=== PATIENT | female | born 1945 | race Caucasian/White ===

== ENCOUNTER → 2017-02-23 | Outpatient (CLI) | payer MEDICARE, OTHER ==
[2017-02-23 12:19] LABS: ALANINE AMINOTRANSFERASE 31 U/L (9-52); ALBUMIN 3.9 g/dL (3.5-5.0); ALKALINE PHOSPHATASE 60 U/L (38-126); ANION GAP 9 (5-19); ASPARTATE AMINO TRANSFERASE 28 U/L (14-36); BILIRUBIN,DIRECT 0.3 mg/dL (0.0-0.4); BILIRUBIN,TOTAL 0.5 mg/dL (0.2-1.3); BLOOD UREA NITROGEN 24 mg/dL (7-20); CALCIUM 9.6 mg/dL (8.4-10.2); CARBON DIOXIDE 27 mmol/L (22-30); CHLORIDE 102 mmol/L (98-107); CHOLESTEROL 149.73 mg/dL (0-200); CREATININE RESULT 1.04 mg/dL (0.52-1.25); Direct HDL 37 mg/dL (>40); GLUCOSE 214 mg/dL (75-110); SODIUM 137.8 mmol/L (137-145); TOTAL PROTEIN 7.3 g/dL (6.3-8.2); TRIGLYCERIDES 208 mg/dL (<150)
[2017-02-23 12:30] LABS: DIRECT LDL 79 mg/dL (<100)
[2017-02-23 12:33] LABS: VLDL CHOLESTEROL 41.6 mg/dL (10-31)
== END ==
LOC: OD 10:41
PROVIDERS: ATTEND Internal Medicine
DX: I25.10 Atherosclerotic heart disease of native coronary artery without angina pectoris (principal); I10 Essential (primary) hypertension; E78.4 Other hyperlipidemia; I34.0 Nonrheumatic mitral (valve) insufficiency; E11.9 Type 2 diabetes mellitus without complications; I65.22 Occlusion and stenosis of left carotid artery; J44.9 Chronic obstructive pulmonary disease, unspecified; J45.998 Other asthma; K23 Disorders of esophagus in diseases classified elsewhere; R01.0 Benign and innocent cardiac murmurs; R09.89 Other specified symptoms and signs involving the circulatory and respiratory systems; Z79.899 Other long term (current) drug therapy
CPT/HCPCS: 36415; 80053; 80061

== ENCOUNTER → 2017-03-02 | Outpatient (CLI) | payer MEDICARE, OTHER ==
--- NOTE | 2017-03-07 13:14 | WOMENS IMAGING REPORT ---
EXAM DESCRIPTION: 3D SCREENING MAMMO BILAT COMPLETED DATE/TIME: 03/02/2017 11:11 am REASON FOR STUDY: ROUTINE SCREENING; 3D Z12.31 COMPARISON: None. TECHNIQUE: Standard craniocaudal and mediolateral oblique views of each breast recorded using digita l acquisition and breast tomosynthesis. LIMITATIONS: None. FINDINGS: RIGHT BREAST MASSES: There are numerous circumscribed masses throughout the breast. Smooth borders on tomosynthes is imaging. CALCIFICATIONS: Multiple calcifications scattered throughout the breast. ARCHITECTURAL DISTORTION: None. DEVELOPING DENSITY: None. ASYMMETRY: None noted. OTHER: No other significant findings. LEFT BREAST MASSES: There are numerous circumscribed masses throughout the breast. Smooth borders on tomosynthes is imaging. CALCIFICATIONS: Multiple calcifications scattered throughout the breast. ARCHITECTURAL DISTORTION: None. DEVELOPING DENSITY: None. ASYMMETRY: None noted. OTHER: No other significant findings. Read with the assistance of CAD. .[facility] - R2 Cenova Version 1.3 .[facility] - R2 Cenova Version 1.3 .[facility] - R2 Cenova Version 2.4 .[facility] [place] R[place] Cenova Version 2.4 [facility] R[facility] Die Maker Bench Stamping Version 9.2 IMPRESSION: Numerous circumscribed masses throughout both breasts. These are most likely cysts but confirmation is necessary to exclude any possible suspicious solid lesions. BREAST DENSITY: b. There are scattered areas of fibroglandular density. BIRAD: 0 Incomplete: Needs Additional Imaging Evaluation and/or prior Mammograms for Comparison. RECOMMENDATION: RECOMMENDED FOLLOW-UP: Recommend additional evaluation with ultrasound of both breas ts. The patient will be contacted for additional imaging. COMMENT: The patient has been notified of the results by letter per SA requirements. Additional no tification policies are in place for contacting patient with suspicious or incomplete findings. Quality ID #[id number]: The [employer] recommends an annual screening mammogram for women aged 40 years or over. This facility utilizes a reminder system to ensure that all patients receive reminder letters, and/or direct phone calls for appointments. This includes reminders for routine scr eening mammograms, diagnostic mammograms, or other Breast Imaging Interventions when appropriate. Th is patient will be placed in the appropriate reminder system. The [employer] (ACR) has developed recommendations for screening MRI of the breast s in certain patient populations, to be used in conjunction with mammography. Breast MRI surveillanc e may be appropriate for women with more than 20% lifetime risk of developing breast cancer as deter mined by genetic testing, significant family history of the disease, or history of mantle radiation f or Hodgkins Disease. ACR Practice Guidelines 2008. DBT Technology DBT is a type of tomographic mammography. With conventional mammography, overlapping breast tissue ma y make lesions difficult to detect, even with good compression. DBT uses an x-ray tube that rotates a round the breast, taking images at different angles. These images are then combined to create thin sl ices of the breast that the radiologist can view as a 3D reconstruction. The [employer] unit can perform full-field digital mammograms (2D imaging); or DBT (3D imaging); or both, in a combination mode that quickly performs both the mammogram and the tomosynthesis scan while the breast is still compressed. PQRS 6045F: Fluoroscopic imaging is not utilized for breast tomosynthesis. TECHNICAL DOCUMENTATION: FINDING NUMBER: (1) ASSESSMENT: (1) JOB ID: [id number] [employer]- All Rights Reserved
== END ==
LOC: WI 10:49
PROVIDERS: ATTEND Internal Medicine
DX: Z12.31 Encounter for screening mammogram for malignant neoplasm of breast (principal)
CPT/HCPCS: 77063; G0202; 77067

== ENCOUNTER → 2017-03-21 | Outpatient (CLI) | payer MEDICARE, OTHER ==
--- NOTE | 2017-03-22 15:17 | WOMENS IMAGING REPORT ---
EXAM DESCRIPTION: U/S BREAST UNILATERAL, COMPL COMPLETED DATE/TIME: 03/21/2017 10:04 am REASON FOR STUDY: BILATERAL BREAST DENSITIES,R92.2 R92.2 INCONCLUSIVE MAMMOGRAM COMPARISON: Bilateral mammograms 03/02/2017 TECHNIQUE: Real-time and static grayscale imaging performed of the right and left whole breast targe yasir to the area of mammographic concern. Selected color Doppler images recorded. LIMITATIONS: None. FINDINGS: Right breast ultrasound: On the right side, there are multiple breast parenchymal cysts, the largest is 14 mm in diameter and correlates with mammographic nodule in the upper outer quadrant 10 to 11 o'clock position. No solid nodules. No acoustic absorption. Left breast ultrasound: On the left side, there are multiple breast parenchymal cysts, the largest i s 3.4 cm in diameter in the upper outer quadrant. These correlate with multiple mammographic masses. No solid nodules. No acoustic absorption. IMPRESSION: Multiple bilateral breast parenchymal cysts. BIRAD: 2 Benign findings. RECOMMENDATION: RECOMMENDED FOLLOW-UP: Please continue yearly bilateral screening in February 2018. Con generation mechanic helper screening tomosynthesis. COMMENT: The [employer] (ACR) has developed recommendations for screening MRI of the breasts in certain patient populations, to be used in conjunction with mammography. Breast MRI s urveillance may be appropriate for women with more than 20% lifetime risk of developing breast cancer as determined by genetic testing, significant family history of the disease, or history of mantle r adiation for Hodgkins Disease. ACR Practice Guidelines 2007. TECHNICAL DOCUMENTATION: JOB ID: [id number] [employer]- All Rights Reserved
--- NOTE | 2017-03-22 15:17 | WOMENS IMAGING REPORT ---
EXAM DESCRIPTION: U/S BREAST UNILATERAL, COMPL COMPLETED DATE/TIME: 03/21/2017 10:04 am REASON FOR STUDY: BILATERAL BREAST DENSITIES,R92.2 R92.2 INCONCLUSIVE MAMMOGRAM COMPARISON: Bilateral mammograms 03/02/2017 TECHNIQUE: Real-time and static grayscale imaging performed of the right and left whole breast targe yasir to the area of mammographic concern. Selected color Doppler images recorded. LIMITATIONS: None. FINDINGS: Right breast ultrasound: On the right side, there are multiple breast parenchymal cysts, the largest is 14 mm in diameter and correlates with mammographic nodule in the upper outer quadrant 10 to 11 o'clock position. No solid nodules. No acoustic absorption. Left breast ultrasound: On the left side, there are multiple breast parenchymal cysts, the largest i s 3.4 cm in diameter in the upper outer quadrant. These correlate with multiple mammographic masses. No solid nodules. No acoustic absorption. IMPRESSION: Multiple bilateral breast parenchymal cysts. BIRAD: 2 Benign findings. RECOMMENDATION: RECOMMENDED FOLLOW-UP: Please continue yearly bilateral screening in February 2018. Con fountain manager screening tomosynthesis. COMMENT: The [employer] [place] [employer] (ACR) has developed recommendations for screening MRI of the breasts in certain patient populations, to be used in conjunction with mammography. Breast MRI s urveillance may be appropriate for women with more than 20% lifetime risk of developing breast cancer as determined by genetic testing, significant family history of the disease, or history of mantle r adiation for Hodgkins Disease. ACR Practice Guidelines 2007. TECHNICAL DOCUMENTATION: JOB ID: [id number] [employer]- All Rights Reserved
== END ==
LOC: WI 08:35
PROVIDERS: ATTEND Internal Medicine
DX: N60.12 Diffuse cystic mastopathy of left breast (principal); N60.11 Diffuse cystic mastopathy of right breast
CPT/HCPCS: 76641

== ENCOUNTER → 2018-03-05 | Outpatient (CLI) | payer MEDICARE, OTHER ==
--- NOTE | 2018-03-08 19:01 | WOMENS IMAGING REPORT ---
EXAM DESCRIPTION: 3D SCREENING MAMMO BILAT COMPLETED DATE/TIME: 03/05/2018 11:19 am REASON FOR STUDY: SCREENING MAMMO Z12.31 ENCNTR SCREEN MAMMOGRAM FOR MALIGNANT NEOPLASM OF MARY COMPARISON: 03/02/2017 TECHNIQUE: Standard craniocaudal and mediolateral oblique views of each breast recorded using digita l acquisition and breast tomosynthesis. LIMITATIONS: None. FINDINGS: Findings present which are benign by mammographic criteria. No suspicious masses, calcifi cations or architectural distortion. Pertinent benign findings: Stable bilateral breast parenchymal cysts and scattered benign calcificati ons. Read with the assistance of CAD. .[facility] - R2 Cenova Version 1.3 .[facility] Imaging - R2 Cenova Version 1.3 .[facility] Imaging - R2 Cenova Version 2.4 .[facility] - R2 Cenova Version 2.4 .[facility] - R2 Offset Press Operator Apprentice Version 9.2 Benign mammographic findings may include one or more of the following: Smooth masses, popcorn/rim/co arse calcifications, asymmetries, post-procedure changes, and lesions with long-standing stability. IMPRESSION: BENIGN MAMMOGRAPHIC FINDINGS. BIRADS 2 BREAST DENSITY: c. The breasts are heterogeneously dense, which may obscure small masses. BIRAD: 2 BENIGN FINDING(S) RECOMMENDATION: RECOMMENDATION: ROUTINE SCREENING Please continue yearly bilateral screening tomosynthesis in February 2019 COMMENT: The patient has been notified of the results by letter per SA requirements. Additional no tification policies are in place for contacting patient with suspicious or incomplete findings. Quality ID #[id number]: The [employer] recommends an annual screening mammogram for women aged 40 years or over. This facility utilizes a reminder system to ensure that all patients receive reminder letters, and/or direct phone calls for appointments. This includes reminders for routine scr eening mammograms, diagnostic mammograms, or other Breast Imaging Interventions when appropriate. Th is patient will be placed in the appropriate reminder system. The [employer] (ACR) has developed recommendations for screening MRI of the breast s in certain patient populations, to be used in conjunction with mammography. Breast MRI surveillanc e may be appropriate for women with more than 20% lifetime risk of developing breast cancer as deter mined by genetic testing, significant family history of the disease, or history of mantle radiation f or Hodgkins Disease. ACR Practice Guidelines 2008. DBT Technology DBT is a type of tomographic mammography. With conventional mammography, overlapping breast tissue ma y make lesions difficult to detect, even with good compression. DBT uses an x-ray tube that rotates a round the breast, taking images at different angles. These images are then combined to create thin sl ices of the breast that the radiologist can view as a 3D reconstruction. The [employer] unit can perform full-field digital mammograms (2D imaging); or DBT (3D imaging); or both, in a combination mode that quickly performs both the mammogram and the tomosynthesis scan while the breast is still compressed. PQRS 6045F: Fluoroscopic imaging is not utilized for breast tomosynthesis. TECHNICAL DOCUMENTATION: FINDING NUMBER: (1) ASSESSMENT: (1) JOB ID: [id number] [employer]- All Rights Reserved Reading location - IP/workstation name: [email or web address]
== END ==
LOC: WI 08:46
PROVIDERS: ATTEND Internal Medicine
DX: Z12.31 Encounter for screening mammogram for malignant neoplasm of breast (principal)
CPT/HCPCS: 77063; 77067

== ENCOUNTER → 2018-03-09 | Outpatient (CLI) | payer MEDICARE, OTHER ==
[2018-03-09 11:32] LABS: ALANINE AMINOTRANSFERASE 21 U/L (9-52); ALKALINE PHOSPHATASE 56 U/L (38-126); ANION GAP 9 (5-19); ASPARTATE AMINO TRANSFERASE 23 U/L (14-36); BILIRUBIN,DIRECT 0.3 mg/dL (0.0-0.4); BILIRUBIN,TOTAL 0.4 mg/dL (0.2-1.3); BLOOD UREA NITROGEN 32 mg/dL (7-20); CALCIUM 9.5 mg/dL (8.4-10.2); CARBON DIOXIDE 27 mmol/L (22-30); CHLORIDE 104 mmol/L (98-107); CHOLESTEROL 144.73 mg/dL (0-200); GLUCOSE 186 mg/dL (75-110); POTASSIUM 4.6 mmol/L (3.6-5.0); SODIUM 140.3 mmol/L (137-145); TOTAL PROTEIN 7.1 g/dL (6.3-8.2); TRIGLYCERIDES 162 mg/dL (<150)
[2018-03-09 11:43] LABS: DIRECT LDL 81 mg/dL (<100); VLDL CHOLESTEROL 32.4 mg/dL (10-31)
== END ==
LOC: OD 09:58
PROVIDERS: ATTEND Internal Medicine
DX: I25.10 Atherosclerotic heart disease of native coronary artery without angina pectoris (principal); I10 Essential (primary) hypertension; E78.4 Other hyperlipidemia; I34.0 Nonrheumatic mitral (valve) insufficiency; E11.9 Type 2 diabetes mellitus without complications; J45.998 Other asthma; J44.9 Chronic obstructive pulmonary disease, unspecified; K23 Disorders of esophagus in diseases classified elsewhere; R01.0 Benign and innocent cardiac murmurs; R09.89 Other specified symptoms and signs involving the circulatory and respiratory systems; I65.22 Occlusion and stenosis of left carotid artery; Z79.899 Other long term (current) drug therapy
CPT/HCPCS: 36415; 80053; 80061; 83036

== ENCOUNTER → 2018-04-16 | Outpatient (CLI) | payer MEDICARE, OTHER ==
[2018-04-16 12:57] LABS: ABSOLUTE EOSINOPHILS # (AUTO) 0.3 10^3/uL (0.0-0.6); ABSOLUTE LYMPHOCYTES (AUTO) 1.3 10^3/uL (0.5-4.7); ABSOLUTE MONOCYTES (AUTO) 0.4 10^3/uL (0.1-1.4); ABSOLUTE NEUT (AUTO) 3.9 10^3/uL (1.7-8.2); BASOPHILS % (AUTO) 0.2 % (0-2); EOSINOPHILS % (AUTO) 5.7 % (0-6); HEMATOCRIT 34.6 % (36.0-47.0); LYMPHOCYTES % (AUTO) 21.6 % (13-45); MEAN CORPUSCULAR HEMOGLOBIN 29.1 pg (27.0-33.4); MEAN CORPUSCULAR HGB CONC 34.6 g/dL (32.0-36.0); MEAN CORPUSCULAR VOLUME 84 fl (80-97); PLATELET COUNT 273 10^3/uL (150-450); RED BLOOD COUNT 4.12 10^6/uL (3.72-5.28); RED CELL DISTRIBUTION WIDTH 14.1 % (11.5-14.0); SEGMENTED NEUTROPHILS % (AUTO) 65.5 % (42-78); TOTAL CELLS COUNTED % (AUTO) 100 %; WHITE BLOOD COUNT 5.9 10^3/uL (4.0-10.5)
[2018-04-16 13:03] LABS: INTERNATIONAL RATION (INR) 0.95; PROTHROMBIN TIME 13.2 SEC (11.4-15.4)
[2018-04-16 13:04] LABS: PARTIAL THROMBOPLASTIN TIME 26.6 SEC (23.5-35.8)
[2018-04-16 13:52] LABS: ANION GAP 7 (5-19); BLOOD UREA NITROGEN 25 mg/dL (7-20); CARBON DIOXIDE 31 mmol/L (22-30); CHLORIDE 101 mmol/L (98-107); GLUCOSE 246 mg/dL (75-110); POTASSIUM 4.6 mmol/L (3.6-5.0); SODIUM 138.5 mmol/L (137-145)
== END ==
LOC: OD 12:25
PROVIDERS: ATTEND Internal Medicine
DX: I25.10 Atherosclerotic heart disease of native coronary artery without angina pectoris (principal); I65.22 Occlusion and stenosis of left carotid artery; E78.4 Other hyperlipidemia; I34.0 Nonrheumatic mitral (valve) insufficiency; J45.998 Other asthma; J44.9 Chronic obstructive pulmonary disease, unspecified; K23 Disorders of esophagus in diseases classified elsewhere; R09.89 Other specified symptoms and signs involving the circulatory and respiratory systems; R06.09 Other forms of dyspnea; E11.22 Type 2 diabetes mellitus with diabetic chronic kidney disease; I12.9 Hypertensive chronic kidney disease with stage 1 through stage 4 chronic kidney disease, or unspecified chronic kidney disease; N18.9 Chronic kidney disease, unspecified; R01.1 Cardiac murmur, unspecified; E78.5 Hyperlipidemia, unspecified; Z79.899 Other long term (current) drug therapy
CPT/HCPCS: 36415; 80051; 82565; 82947; 83735; 84520; 85025; 85610; 85730

== ENCOUNTER → 2018-05-10 | Outpatient (CLI) | payer MEDICARE, OTHER ==
--- NOTE | 2018-05-10 13:51 | RADIOLOGY REPORT (SQ) ---
EXAM DESCRIPTION: CHEST PA/LATERAL COMPLETED DATE/TIME: 05/10/2018 12:38 pm REASON FOR STUDY: COUGH,WHEEZING,OTHER FORMS OF DYSPNEA COMPARISON: Two-view chest 12/23/2014 EXAM PARAMETERS: NUMBER OF VIEWS: two views TECHNIQUE: Digital Frontal and Lateral radiographic views of the chest acquired. RADIATION DOSE: NA LIMITATIONS: none FINDINGS: LUNGS AND PLEURA: No opacities, masses or pneumothorax. No pleural effusion. MEDIASTINUM AND HILAR STRUCTURES: No masses or contour abnormalities. HEART AND VASCULAR STRUCTURES: Heart normal size. No evidence for failure. BONES: Osteopenic without thoracic compression deformity HARDWARE: Clips right upper quadrant post cholecystectomy OTHER: No other significant finding. IMPRESSION: NO SIGNIFICANT RADIOGRAPHIC FINDING IN THE CHEST. TECHNICAL DOCUMENTATION: JOB ID: [id number] [employer]- All Rights Reserved Reading location - IP/workstation name: [email or web address]
== END ==
LOC: OD 12:24
PROVIDERS: ATTEND Internal Medicine Pulmonary Disease
DX: R06.09 Other forms of dyspnea (principal); R05 Cough; R06.2 Wheezing
CPT/HCPCS: 71046

== ENCOUNTER → 2018-11-19 | Outpatient (CLI) | payer MEDICARE, OTHER ==
[2018-11-19 09:44] LABS: CHOLESTEROL 117.31 mg/dL (0-200); TRIGLYCERIDES 143 mg/dL (<150)
[2018-11-19 10:01] LABS: DIRECT LDL 74 mg/dL (<100)
== END ==
LOC: LAB 09:01
PROVIDERS: ATTEND Internal Medicine
DX: I25.118 Atherosclerotic heart disease of native coronary artery with other forms of angina pectoris (principal); I12.9 Hypertensive chronic kidney disease with stage 1 through stage 4 chronic kidney disease, or unspecified chronic kidney disease; N18.9 Chronic kidney disease, unspecified; E11.22 Type 2 diabetes mellitus with diabetic chronic kidney disease; E78.49 Other hyperlipidemia; I34.0 Nonrheumatic mitral (valve) insufficiency; J45.998 Other asthma; J44.9 Chronic obstructive pulmonary disease, unspecified; I65.22 Occlusion and stenosis of left carotid artery; R06.09 Other forms of dyspnea; R09.89 Other specified symptoms and signs involving the circulatory and respiratory systems; R01.1 Cardiac murmur, unspecified; K23 Disorders of esophagus in diseases classified elsewhere; Z79.899 Other long term (current) drug therapy
CPT/HCPCS: 36415; 80061

== ENCOUNTER → 2019-02-19 | Outpatient (CLI) | payer MEDICARE, OTHER ==
--- NOTE | 2019-02-19 17:05 | RADIOLOGY REPORT (SQ) ---
EXAM DESCRIPTION: TMJ COMPLETED DATE/TIME: 02/19/2019 4:51 pm REASON FOR STUDY: ARTHRALGIA OF LEFT TMJ COMPARISON: None. TECHNIQUE: Aubrey's, right oblique open and closed mouth TMJ views, left oblique open and closed mout h TMJ views LIMITATIONS: None. FINDINGS: Temporomandibular joints demonstrate normal mobility between open and closed mouth views. No significant joint space narrowing. No bulky bony spurring along the mandibular condyles. Remainder of the visualized facial bones paranasal sinuses and mastoids are unremarkable. IMPRESSION: Unremarkable study TECHNICAL DOCUMENTATION: JOB ID: [id number] [employer]- All Rights Reserved Reading location - IP/workstation name: [email or web address]
== END ==
LOC: OD 16:26
PROVIDERS: ATTEND Internal Medicine
DX: M26.622 Arthralgia of left temporomandibular joint (principal)
CPT/HCPCS: 70330

== ENCOUNTER → 2019-02-21 | Outpatient (CLI) | payer MEDICARE, OTHER ==
--- NOTE | 2019-02-21 15:24 | WOMENS IMAGING REPORT ---
EXAM DESCRIPTION: 3D DX MAMMO BILAT; U/S BREAST UNILAT LIMITED COMPLETED DATE/TIME: 02/21/2019 11:53 am; 02/21/2019 12:35 pm REASON FOR STUDY: N63.21; N63.21 LEFT BREAST N63.20 UNSPECIFIED LUMP IN THE LEFT BREAST, UNSPECIFIE D QUAD COMPARISON: 2017, 2016 EXAM PARAMETERS: Standard craniocaudal and mediolateral oblique views of each breast recorded using digital acquisition and breast tomosynthesis. Additional left breast cone compression in the CC and MLO orientations. Left breast 90 mediolateral view Left breast ultrasound was also performed. Read with the assistance of CAD: .[employer] - [employer] Plywood Stock Grader Version 9.2 LIMITATIONS: None. FINDINGS: RIGHT BREAST MASSES: Multiple right breast low-density well-circumscribed mammographic nodules are present from br east parenchymal cysts, stable. CALCIFICATIONS: No new or suspicious calcifications. ARCHITECTURAL DISTORTION: None. DEVELOPING DENSITY: None. ASYMMETRY: None noted. OTHER: No other significant findings. LEFT BREAST MASSES: Multiple left breast low-density well-circumscribed mammographic nodules are present from luda ast parenchymal cysts, stable. The largest of these is 5 cm in diameter far lateral breast 2 to 3 o' clock position which correlates with the patient's palpable abnormality. CALCIFICATIONS: No new or suspicious calcifications. ARCHITECTURAL DISTORTION: None. DEVELOPING DENSITY: None. ASYMMETRY: None noted. OTHER: No other significant finding. Ultrasound of the left breast in the area of palpable abnormality was performed. In this area, 2 to 3 o'clock position about 10 to 12 cm from the nipple, a 5 cm anechoic simple cyst is present. If thi s cyst is painful, this would be amenable to ultrasound-guided aspiration. IMPRESSION: No mammographic evidence for malignancy right breast. No mammographic or sonographic evidence for malignancy left breast ASSESSMENT: BIRADS 2: BENIGN FINDINGS BREAST DENSITY: c. The breasts are heterogeneously dense, which may obscure small masses. BIRAD: 2 Benign findings. RECOMMENDATION: RECOMMENDED FOLLOW UP: Clinical followup for breast cysts. Ultrasound-guided aspira tion could be performed along the left breast 5 cm cystic this is tender or painful. Otherwise, plea se continue yearly bilateral screening mammography/ tomosynthesis in January 2020 SPECIFIC INTERVENTION/IMAGING/CONSULTATION RECOMMENDED:No additional intervention/ imaging/consultati on needed at this time. COMMUNICATION:Patient notified by letter COMMENT: The patient has been notified of the results by letter per MQSA requirements. Additional no tification policies are in place for contacting patient with suspicious or incomplete findings. Quality ID #225: The [employer] recommends an annual screening mammogram for women aged 40 years or over. This facility utilizes a reminder system to ensure that all patients receive reminder letters, and/or direct phone calls for appointments. This includes reminders for routine scr eening mammograms, diagnostic mammograms, or other Breast Imaging Interventions when appropriate. Th is patient will be placed in the appropriate reminder system. TECHNICAL DOCUMENTATION: FINDING NUMBER: (1) ASSESSMENT: (1) JOB ID: [id number] [employer]- All Rights Reserved Reading location - IP/workstation name: [email or web address]
--- NOTE | 2019-02-21 15:24 | WOMENS IMAGING REPORT ---
EXAM DESCRIPTION: 3D DX MAMMO BILAT; U/S BREAST UNILAT LIMITED COMPLETED DATE/TIME: 02/21/2019 11:53 am; 02/21/2019 12:35 pm REASON FOR STUDY: N63.21; N63.21 LEFT BREAST N63.20 UNSPECIFIED LUMP IN THE LEFT BREAST, UNSPECIFIE D QUAD COMPARISON: 2017, 2016 EXAM PARAMETERS: Standard craniocaudal and mediolateral oblique views of each breast recorded using digital acquisition and breast tomosynthesis. Additional left breast cone compression in the CC and MLO orientations. Left breast 90 mediolateral view Left breast ultrasound was also performed. Read with the assistance of CAD: .[employer] - [email or web address] Reproductive Endocrinologist Version 9.2 LIMITATIONS: None. FINDINGS: RIGHT BREAST MASSES: Multiple right breast low-density well-circumscribed mammographic nodules are present from br east parenchymal cysts, stable. CALCIFICATIONS: No new or suspicious calcifications. ARCHITECTURAL DISTORTION: None. DEVELOPING DENSITY: None. ASYMMETRY: None noted. OTHER: No other significant findings. LEFT BREAST MASSES: Multiple left breast low-density well-circumscribed mammographic nodules are present from luda ast parenchymal cysts, stable. The largest of these is 5 cm in diameter far lateral breast 2 to 3 o' clock position which correlates with the patient's palpable abnormality. CALCIFICATIONS: No new or suspicious calcifications. ARCHITECTURAL DISTORTION: None. DEVELOPING DENSITY: None. ASYMMETRY: None noted. OTHER: No other significant finding. Ultrasound of the left breast in the area of palpable abnormality was performed. In this area, 2 to 3 o'clock position about 10 to 12 cm from the nipple, a 5 cm anechoic simple cyst is present. If thi s cyst is painful, this would be amenable to ultrasound-guided aspiration. IMPRESSION: No mammographic evidence for malignancy right breast. No mammographic or sonographic evidence for malignancy left breast ASSESSMENT: BIRADS 2: BENIGN FINDINGS BREAST DENSITY: c. The breasts are heterogeneously dense, which may obscure small masses. BIRAD: 2 Benign findings. RECOMMENDATION: RECOMMENDED FOLLOW UP: Clinical followup for breast cysts. Ultrasound-guided aspira tion could be performed along the left breast 5 cm cystic this is tender or painful. Otherwise, plea se continue yearly bilateral screening mammography/ tomosynthesis in January 2020 SPECIFIC INTERVENTION/IMAGING/CONSULTATION RECOMMENDED:No additional intervention/ imaging/consultati on needed at this time. COMMUNICATION:Patient notified by letter COMMENT: The patient has been notified of the results by letter per MQSA requirements. Additional no tification policies are in place for contacting patient with suspicious or incomplete findings. Quality ID #225: The [employer] recommends an annual screening mammogram for women aged 40 years or over. This facility utilizes a reminder system to ensure that all patients receive reminder letters, and/or direct phone calls for appointments. This includes reminders for routine scr eening mammograms, diagnostic mammograms, or other Breast Imaging Interventions when appropriate. Th is patient will be placed in the appropriate reminder system. TECHNICAL DOCUMENTATION: FINDING NUMBER: (1) ASSESSMENT: (1) JOB ID: [id number] [employer]- All Rights Reserved Reading location - IP/workstation name: [email or web address]
== END ==
LOC: WI 11:01
PROVIDERS: ATTEND Internal Medicine
DX: N63.21 Unspecified lump in the left breast, upper outer quadrant (principal)
CPT/HCPCS: 76642; 77066; G0279; 77062

== ENCOUNTER → 2019-07-11 | Outpatient (CLI) | payer MEDICARE, OTHER ==
[2019-07-11 11:30] LABS: HEMATOCRIT 36.7 % (36.0-47.0); HEMOGLOBIN 12.5 g/dL (12.0-15.5); MEAN CORPUSCULAR HEMOGLOBIN 28.6 pg (27.0-33.4); MEAN CORPUSCULAR HGB CONC 34.1 g/dL (32.0-36.0); MEAN CORPUSCULAR VOLUME 84 fl (80-97); PLATELET COUNT 274 10^3/uL (150-450); RED BLOOD COUNT 4.37 10^6/uL (3.72-5.28)
[2019-07-11 11:50] LABS: ANION GAP 10 (5-19); BLOOD UREA NITROGEN 27 mg/dL (7-20); CALCIUM 9.7 mg/dL (8.4-10.2); CARBON DIOXIDE 29 mmol/L (22-30); CHLORIDE 98 mmol/L (98-107); GLUCOSE 242 mg/dL (75-110)
== END ==
LOC: LAB 11:14
PROVIDERS: ATTEND Internal Medicine Nephrology
DX: E11.22 Type 2 diabetes mellitus with diabetic chronic kidney disease (principal); I12.9 Hypertensive chronic kidney disease with stage 1 through stage 4 chronic kidney disease, or unspecified chronic kidney disease; N18.3 Chronic kidney disease, stage 3 (moderate)
CPT/HCPCS: 36415; 80048; 85027

== ENCOUNTER → 2020-03-31 | Outpatient (CLI) | payer MEDICARE, OTHER ==
--- NOTE | 2020-03-31 14:57 | WOMENS IMAGING REPORT ---
EXAM DESCRIPTION: 3D SCREENING MAMMO BILAT IMAGES COMPLETED DATE/TIME: 03/31/2020 2:28 pm REASON FOR STUDY: Z12.31 ENCOUNTER FOR SCREENING MAMMOGRAM FOR MALIGNANT NEOPLASM OF BREAST Z12.31 ENCNTR SCREEN MAMMOGRAM FOR MALIGNANT NEOPLASM OF MARY COMPARISON: Multiple since 2017 EXAM PARAMETERS: Standard craniocaudal and mediolateral oblique views of each breast recorded using digital acquisition and breast tomosynthesis. Read with the assistance of CAD. .[facility] - R2 Area Operations Manager Version 9.2 LIMITATIONS: None. FINDINGS: Findings present which are benign by mammographic criteria. No suspicious masses, calcific ations or architectural distortion. Pertinent benign findings: Multiple benign low-density well-circumscribed mammographic masses. Stabl e benign bilateral breast parenchymal calcifications Benign mammographic findings may include one or more of the following: Smooth masses, popcorn/rim/coa rse calcifications, asymmetries, post-procedure changes, and lesions with long-standing stability. IMPRESSION: BENIGN MAMMOGRAPHIC FINDINGS. BIRADS 2 BREAST DENSITY: b. There are scattered areas of fibroglandular density. BIRAD: ASSESSMENT: 2 BENIGN FINDING(S) RECOMMENDATION: ROUTINE SCREENING Please continue yearly bilateral screening mammography/tomosynthesis in March 2021 COMMENT: The patient has been notified of the results by letter per SA requirements. Additional no tification policies are in place for contacting patient with suspicious or incomplete findings. Quality ID #225: The [employer] recommends an annual screening mammogram for women aged 40 years or over. This facility utilizes a reminder system to ensure that all patients receive reminder letters, and/or direct phone calls for appointments. This includes reminders for routine scr eening mammograms, diagnostic mammograms, or other Breast Imaging Interventions when appropriate. Th is patient will be placed in the appropriate reminder system. TECHNICAL DOCUMENTATION: FINDING NUMBER: (1) ASSESSMENT: (1) JOB ID: [id number] [employer]- All Rights Reserved Reading location - IP/workstation name: [email or web address]
== END ==
LOC: WI 13:22
PROVIDERS: ATTEND Internal Medicine
DX: Z12.31 Encounter for screening mammogram for malignant neoplasm of breast (principal)
CPT/HCPCS: 77063; 77067

== ENCOUNTER → 2020-08-24 | Outpatient (CLI) | payer MEDICARE, OTHER ==
[2020-08-24 09:50] LABS: HEMATOCRIT 33.2 % (36.0-47.0); HEMOGLOBIN 11.4 g/dL (12.0-15.5); MEAN CORPUSCULAR HEMOGLOBIN 29.4 pg (27.0-33.4); MEAN CORPUSCULAR HGB CONC 34.4 g/dL (32.0-36.0); MEAN CORPUSCULAR VOLUME 86 fl (80-97); PLATELET COUNT 245 10^3/uL (150-450); RED BLOOD COUNT 3.88 10^6/uL (3.72-5.28); RED CELL DISTRIBUTION WIDTH 13.5 % (11.5-14.0); WHITE BLOOD COUNT 6.2 10^3/uL (4.0-10.5)
[2020-08-24 09:55] LABS: APPEARANCE,URINE CLEAR; BILIRUBIN,URINE NEGATIVE (NEGATIVE); COLOR,URINE YELLOW; GLUCOSE, URINE NEGATIVE (NEGATIVE); KETONES,URINE NEGATIVE (NEGATIVE); PROTEIN,URINE NEGATIVE (NEGATIVE); URINE SPECIFIC GRAVITY 1.016; UROBILINOGEN,URINE NEGATIVE mg/dL (<2.0)
[2020-08-24 10:13] LABS: ALBUMIN 3.8 g/dL (3.5-5.0); BLOOD UREA NITROGEN 26 mg/dL (7-20); CALCIUM 9.4 mg/dL (8.4-10.2); GLUCOSE 251 mg/dL (75-110); PHOSPHORUS 3.5 mg/dL (2.5-4.5); POTASSIUM 5.2 mmol/L (3.6-5.0)
[2020-08-24 10:18] LABS: ANION GAP 5 (5-19); CARBON DIOXIDE 29 mmol/L (22-30); CHLORIDE 103 mmol/L (98-107)
== END ==
LOC: LAB 09:30
PROVIDERS: ATTEND Internal Medicine Nephrology
DX: N18.30 Chronic kidney disease, stage 3 unspecified (principal)
CPT/HCPCS: 36415; 80069; 81001; 82043; 82570; 83735; 85027; 87086